=== PATIENT | male | born 2000 | race African-American/Black ===

== ENCOUNTER 2025-02-16 05:45 | Emergency (ER) | payer BC, OTHER ==
[2025-02-16] MEDS: Diphtheria,Pertussis(Acell),Tetanus Vaccine 0.5 ML Syringe IM ONE (06:02)
== END 2025-02-16 06:57 ==
LOC: MW.ED 05:45
DX: S68.114A Complete traumatic metacarpophalangeal amputation of right ring finger, initial encounter (principal); Z23 Encounter for immunization; W31.89XA Contact with other specified machinery, initial encounter; Y99.0 Civilian activity done for income or pay; Y92.89 Other specified places as the place of occurrence of the external cause
CPT/HCPCS: 73140; 90471; 90715; 99283; A9270; J2003